=== PATIENT | male | born 1950 | race Caucasian/White ===

== ENCOUNTER 2018-04-19 22:18 | Emergency (ER) | payer MEDICARE ==
[~2018-04-19] VITALS: Ht 188 cm; Wt 113.4 kg
[~2018-04-19 22:18] MED LIST: AMLODIPINE BESY10 MG PO; FLAGYL500 MG PO; IMODIUM2 MG PO; LEVOTHYROXINE137 MCG PO; VANCOCIN HCL250 MG PO
[2018-04-19] MEDS ORDERED: PANTOPRAZOLE INJ 40 MG in SODIUM CHLORIDE 0.9% 50ML 50 ML IV STA (22:51)
[2018-04-19] MEDS ORDERED: ASPIR 8181 MG PO (22:57)
[2018-04-19] MEDS ORDERED: ZESTRIL10 MG PO (22:57)
[2018-04-19] MEDS ORDERED: OCTREOTIDE ACETATE 500 MCG in SODIUM CHLORIDE 0.9% 250ML 250 ML IV SCH (23:00)
[2018-04-19 23:09] LABS: BASOPHILS # (AUTO) 0.1 (0.0-0.1); BASOPHILS % 0.8 % (0.0-1.0); EOSINOPHILS # (AUTO) 0.2 (0.0-0.4); EOSINOPHILS % 1.6 % (0.0-6.0); HEMOGLOBIN 15.2 g/dL (14.0-18.0); LYMPHOCYTES % 16.9 % (18.0-39.1); MEAN CORPUSCULAR HEMOGLOBIN 29.3 pg (28-32); MEAN CORPUSCULAR VOLUME 88.6 fL (81-99); MONOCYTES # (AUTO) 0.8 (0.2-0.8); MONOCYTES % 7.1 % (4.4-11.3); NEUTROPHILS # (AUTO) 8.6 (2.1-6.9); PLATELET COUNT 239 x10e3/uL (140-360); RED BLOOD COUNT 5.19 x10e6/uL (4.3-5.7)
[2018-04-19 23:13] LABS: INR 1.04; PROTHROMBIN TIME 14.5 seconds (11.9-14.5)
[2018-04-19 23:14] LABS: PARTIAL THROMBOPLASTIN TIME 36.8 seconds (23.8-35.5)
[2018-04-19] MEDS ORDERED: PANTOPRAZOLE 40 MG 10ML VIAL ONE (23:16)
[2018-04-19 23:24] LABS: ALANINE AMINOTRANSFERASE 38 IU/L (0-55); ALBUMIN 3.9 g/dL (3.5-5.0); ALBUMIN/GLOBULIN RATIO 1.1 (0.8-2.0); ALKALINE PHOSPHATASE 92 IU/L (40-150); ANION GAP 15.8 mmol/L (8-16); BLOOD UREA NITROGEN 16 mg/dL (7-26); BUN/CREATININE RATIO 17 (6-25); CALCIUM 9.4 mg/dL (8.4-10.2); CARBON DIOXIDE 22 mmol/L (22-29); CHLORIDE 106 mmol/L (98-107); CREATINE KINASE 150 IU/L (30-200); CREATININE, SERUM 0.95 mg/dL (0.72-1.25); EST GLOMERULAR FILTRATION RATE > 60 ML/MIN (60-); GLUCOSE 109 mg/dL (74-118); POTASSIUM 3.8 mmol/L (3.5-5.1); SODIUM 140 mmol/L (136-145)
[2018-04-19] MEDS ORDERED: PANTOPRAZOLE 40 MG 10ML VIAL IV STA (23:24)
[2018-04-20 01:19] LABS: HEMATOCRIT 45.2 % (38.2-49.6); HEMOGLOBIN 14.9 g/dL (14.0-18.0)
[2018-04-20] MEDS ORDERED: SODIUM CHLORIDE 0.9% 1000ML 1,000 ML IV STA (01:27)
[2018-04-20] MEDS ORDERED: ONDANSETRON HCL INJ 2 MG/ML VIAL ONE (01:28)
[2018-04-20] MEDS ORDERED: SODIUM CHLORIDE 0.9% 1000ML 1,000 ML ONE (01:31)
[2018-04-20] MEDS ORDERED: IOPAMIDOL 370 MG/ML 200 ML INFUS..BTL INJ ONE (01:46)
[2018-04-20] MEDS ORDERED: SODIUM CHLORIDE 0.9% 50ML 50 ML ONE (01:47)
--- NOTE | 2018-04-20 03:00 | Diagnostic Imaging Report ---
EXAM: CT ABDOMEN AND PELVIS with IV CONTRAST DATE: 04/20/2018 1:31 AM Time stamp on Exam: 0230 hours INDICATION: Bright red rectal bleeding COMPARISON: None TECHNIQUE: The abdomen and pelvis were scanned using a multidetector helical scanner. Coronal and sagittal reformations were obtained. Dose modulation, iterative reconstruction, and/or weight based adjustment of the mA/kV was utilized to reduce the radiation dose to as low as reasonably achievable. Routine protocol performed. IV Contrast: 100 cc Isovue-370 Oral Contrast: Water FINDINGS: LOWER THORAX: No consolidations LIVER: No masses BILIARY: The gallbladder is unremarkable. No ductal dilation. SPLEEN: No masses PANCREAS: No masses ADRENALS: No nodules KIDNEYS: Symmetric perfusion. No enhancing masses. No hydronephrosis. GI TRACT: No distention, wall thickening or evidence of obstruction. Normal appendix. Sigmoid colon diverticulosis. VESSELS: Moderate apical scarring changes of the abdominal aorta and branches without aneurysm. PERITONEUM/RETROPERITONEUM: No free air or fluid LYMPH NODES: No lymphadenopathy REPRODUCTIVE ORGANS: Unremarkable BLADDER: Unremarkable SOFT TISSUES: Unremarkable BONES: No suspicious bone lesions. IMPRESSION: Sigmoid colon diverticulosis without CT findings of acute diverticulitis. Signed by: Dr. Inocencia Escobar M.D. on 04/20/2018 2:57 AM
[2018-04-21] MEDS ORDERED: PANTOPRAZOLE 40 MG 10ML VIAL IV SCH (09:00)
== END 2018-04-20 06:18 | disposition home or self-care (01) ==
LOC: ER 22:18 → UNDOADMOB 04-20 01:31 → ERHOLD 04-20 01:31 → ER 04-20 06:18
DX: K62.5 Hemorrhage of anus and rectum (principal); K57.31 Diverticulosis of large intestine without perforation or abscess with bleeding
CPT/HCPCS: 36415; 74177; 80053; 82550; 82553; 82948; 83690; 84484; 85014; 85018; 85025; 85610; 85730; 86850; 86900; 99284; J2405; J7030; Q9967

== ENCOUNTER 2022-02-11 14:58 | Emergency (ER) | payer MEDICARE ==
[~2022-02-11] VITALS: Ht 188 cm; Wt 113.4 kg
[~2022-02-11 14:58] MED LIST changes: +ASPIR 8181 MG PO; +ZESTRIL10 MG PO
[2022-02-11 15:34] LABS: BASOPHILS # (AUTO) 0.1 (0.0-0.1); BASOPHILS % 1.1 % (0.0-1.0); EOSINOPHILS # (AUTO) 0.2 (0.0-0.4); EOSINOPHILS % 1.5 % (0.0-6.0); HEMATOCRIT 49.6 % (38.2-49.6); HEMOGLOBIN 16.4 g/dL (14.0-18.0); LYMPHOCYTES # (AUTO) 1.4 (1.0-3.2); LYMPHOCYTES % 13.3 % (18.0-39.1); MEAN CORPUSCULAR HEMOGLOBIN 27.9 pg (28-32); MEAN CORPUSCULAR HGB CONC 33.1 g/dL (31-35); MEAN CORPUSCULAR VOLUME 84.5 fL (81-99); MONOCYTES # (AUTO) 0.7 (0.2-0.8); MONOCYTES % 7.1 % (4.4-11.3); NEUTROPHILS # (AUTO) 7.8 (2.1-6.9); NEUTROPHILS % 76.3 % (38.7-80.0); PLATELET COUNT 262 x10e3/uL (140-360); RED BLOOD COUNT 5.87 x10e6/uL (4.3-5.7); RED CELL DISTRIBUTION WIDTH 14.6 % (11.7-14.4)
[2022-02-11 15:40] LABS: INR 1.01; PROTHROMBIN TIME 14.2 seconds (11.9-14.5)
[2022-02-11 15:41] LABS: PARTIAL THROMBOPLASTIN TIME 35.1 seconds (23.8-35.5)
[2022-02-11 15:52] LABS: ALBUMIN 3.7 g/dL (3.5-5.0); ALBUMIN/GLOBULIN RATIO 0.9 (0.8-2.0); ANION GAP 15.1 mmol/L (8-16); CALCIUM 9.3 mg/dL (8.4-10.2); CREATININE, SERUM 1.03 mg/dL (0.72-1.25); POTASSIUM 4.1 mmol/L (3.5-5.1)
[2022-02-11] MEDS ORDERED: AMLODIPINE BESYLATE 5 MG TAB PO ONE (17:00)
[2022-02-11 17:13] LABS: CLARITY,URINE CLEAR (CLEAR); COLOR,URINE YELLOW (YELLOW); KETONES,URINE NEGATIVE (NEGATIVE); LEUKOCYTE ESTERASE ,URINE NEGATIVE (NEGATIVE); NITRITE,URINE NEGATIVE (NEGATIVE); PROTEIN,URINE DIPSTICK NEGATIVE (NEGATIVE); URINE UROBILINOGEN 0.2 mg/dL (0.2 - 1)
[2022-02-11 17:21] LABS: BACTERIA,URINE FEW /HPF
[2022-02-11] MEDS ORDERED: SODIUM CHLORIDE 0.9% 1000ML 1,000 ML IV STA (17:40)
[2022-02-11] MEDS ORDERED: KETOROLAC TROMETHAMINE 30 MG/ML VIAL IV STA (17:40)
[2022-02-11 18:42] VITALS: BP 187/97
== END 2022-02-11 18:47 | disposition home or self-care (01) ==
LOC: ER 15:05
DX: R51.9 Headache, unspecified (principal); I10 Essential (primary) hypertension; J44.9 Chronic obstructive pulmonary disease, unspecified; E03.9 Hypothyroidism, unspecified
CPT/HCPCS: 36415; 70450; 71045; 80053; 81001; 82550; 82553; 82948; 83880; 84484; 85025; 85610; 85730; 93005; 99284; J1885; J7030

== ENCOUNTER 2022-10-24 11:35 | Emergency (ER) | payer MEDICARE ==
[~2022-10-24] VITALS: Ht 188 cm; Wt 115.8 kg
[2022-10-24] MEDS ORDERED: CARVEDILOL12.5 MG PO (12:05)
[2022-10-24] MEDS ORDERED: HYDROCHLOROTHIA25 MG PO (12:05)
[2022-10-24] MEDS ORDERED: LOPRESSOR25 MG PO (12:07)
[2022-10-24] MEDS ORDERED: ATORVASTATIN CA20 MG PO (12:07)
[2022-10-24] MEDS ORDERED: CEFPODOXIME PR200 MG PO (12:26)
[2022-10-24 12:34] VITALS: O2SAT 93
== END 2022-10-24 12:34 | disposition home or self-care (01) ==
LOC: FSED 11:39
DX: R30.0 Dysuria (principal); N39.0 Urinary tract infection, site not specified; I10 Essential (primary) hypertension; J44.9 Chronic obstructive pulmonary disease, unspecified; E03.9 Hypothyroidism, unspecified; Z87.19 Personal history of other diseases of the digestive system
CPT/HCPCS: 81003; 99283